=== PATIENT | male | born 1945 | race Caucasian/White ===

== ENCOUNTER 2020-12-27 14:28 | Day surgery (SDC) | payer MEDICARE ==
[~2020-12-27] VITALS: Ht 182.9 cm; Wt 76.9 kg
[2020-12-27] VITALS (9 sets, daily range): BP systolic 112–126; BP diastolic 68–83; PULSE 55–78; TEMP 97.4–97.5
--- NOTE | 2020-12-27 | NUR ---
CBI continues to run at moderate rate. output remains moreno red in color, pt reports not having an urge to void and catheter appears to be flowing freely
[~2020-12-27 14:28] MED LIST: COLACE 100100 MG/CAP PO; NO HOME MEDICATIONS; NORCO 325 MG-51 TAB PO; PYRIDIUM200 M1 PO
--- NOTE | 2020-12-27 17:30 | NUR ---
returned to room per bed from PACU, awake and alert, IV infusing per dial-a-flow, CBI infusing at slow rate and urine light pink, O2 on at 2L/NC, denies needs at this time
--- NOTE | 2020-12-27 17:45 | NUR ---
resting in bed, full assessment completed, see interventions for further info, CBI continues at slow to mod rate and urine is light red and clear
--- NOTE | 2020-12-27 18:38 | NUR ---
visiting with son, bedside shift report given to KAYLA Ojeda
--- NOTE | 2020-12-27 19:39 | NUR ---
Pt doing well at this time, CBI running at slow rate with output moreno red, CBI increased slighly with output to pink. Some minimal clots seen in carrington catheter. Pt reports no pain, just slight urge to void. Pt reports that he is not hungry at this time, but is tolerated ice water.
[2020-12-28] VITALS (13 sets, daily range): BP systolic 102–127; BP diastolic 62–75; PULSE 50–93; TEMP 97.4–98
--- NOTE | 2020-12-28 02:00 | NUR ---
Went to empty carrington catheter, was only able to empty approximately 1600ml and then the catheter bag quit draining. Output was still flowing through the catheter. Changed catheter bag at this time. Output is pink in color with CBI running at slow to moderate rate. Pt did have some clots go through the catheter tubing at the beginning of my shift. Pt has no pain complaints.
--- NOTE | 2020-12-28 02:45 | NUR ---
Output is becoming darker in color. CBI increased to moderate to fast rate. pt has no complaints of feeling as if he needs to urinate any more than when he first got out of surgery.
--- NOTE | 2020-12-28 03:50 | NUR ---
At approximately 0300 in to assess pt and output. Output continues to be dark in color and appears as if it is not draining again. Pt reports feeling okay at this time. Irrigated catheter and removed several large clots. Hooked up new catheter bag, carrington draining and CBI running at a fast rate. Output was dark red in color, but was draining. Remained with pt. Approximately 15 minutes later, catheter clotted off again. Irrigated and again was able to remove several clots, but the catheter clotted of and was not able to get it to drain. Dr Sanderson called and notified. CBI was turned off during this time. Pt is tolerating it at this time.
--- NOTE | 2020-12-28 04:42 | NUR ---
Pt off the floor at this time to OR
--- NOTE | 2020-12-28 07:05 | NUR ---
Pt recently arrived back from surgery. he is alert and oriented with no pain complaints. CBI running at moderate rate with clear, pale yellow output
--- NOTE | 2020-12-28 08:11 | NUR ---
Patient in bed resting. Alert and oriented x 3. Assessment complete. Denies pain at this time. CBI infusing at moderate rate with clear yellow urine present. Rate decreased at this time. Post op VSS. Denies needs at this time.
--- NOTE | 2020-12-28 09:01 | NUR ---
Dr. Romero in to see patient. PRN ativan given at this time. Patient anxious about discharge.
[2020-12-28] MEDS ORDERED: PYRIDIUM 100MG100 MG PO (11:02)
--- NOTE | 2020-12-28 11:59 | NUR ---
Plan to return home with Son as support but lives independently in [place]. Assessment: SW met with patient about care EMR contact is son Samir . PCP Rylee and medications obtained at [facility] in . Client indicated that he still likes to excersice on his bike and is looking for a 3 wheel bike because he fell off the one that he has. Patient reports that he uses catheters and has some self catheters. Patient reports that he is independent and does not required any DME. Action: Educated on services, No identifed needs.
--- NOTE | 2020-12-28 15:16 | NUR ---
Patient ambulated > 200 feet with SBA. No further needs at this time.
--- NOTE | 2020-12-28 18:07 | NUR ---
Patient doing well throughout the day, has been up ambulating in halls. Varela to DD with clear yellow to clear peach urine. CBI clamped at this time. Bridger denies pain at this time. Denies further needs at this time. Will report off to shift supervisor melting.
--- NOTE | 2020-12-28 21:00 | NUR ---
Patient resting in bed. No complaints of pain. CBI running slow draining clear pink urine. Patient refused his colace stating he did not need it. No other needs at this time.
[2020-12-29 04:00] VITALS: BP 121/71; PULSE 72; TEMP 97.9
--- NOTE | 2020-12-29 05:45 | NUR ---
Primed patient's catheter and removed it. Patient tolerated well. Patient has already voided once.
--- NOTE | 2020-12-29 06:55 | NUR ---
awake and up in recliner watching TV, bedside shift report received from KAYLA Sherman, patient denies needs
--- NOTE | 2020-12-29 07:30 | NUR ---
remains up in chair, is declining breakfast, full assessment completed, see interventions for further info, has voided a second time and it is clear light red,
[2020-12-29 07:49] VITALS: BP 143/74; PULSE 67; TEMP 97.4
--- NOTE | 2020-12-29 09:29 | NUR ---
up and about in room independently, has voided 4 times now
[2020-12-29 11:16] VITALS: BP 146/75; PULSE 67; TEMP 97.3
--- NOTE | 2020-12-29 13:55 | NUR ---
he is anxious to go home, will plan discharge soon, Dr Sanderson now in to see patient, discharge instructions given to patient and his son, verbalizes understanding
--- NOTE | 2020-12-29 14:09 | NUR ---
discharged ambulatory
== END 2020-12-29 14:05 | disposition home or self-care (01) ==
LOC: SDCO 14:28 → SURG 17:30 → SDCO 12-29 14:05
DX: C67.5 Malignant neoplasm of bladder neck (principal); C67.0 Malignant neoplasm of trigone of bladder; C67.4 Malignant neoplasm of posterior wall of bladder; N99.89 Other postprocedural complications and disorders of genitourinary system; R31.0 Gross hematuria; F17.210 Nicotine dependence, cigarettes, uncomplicated; Z20.822 Contact with and (suspected) exposure to COVID-19; Z90.89 Acquired absence of other organs
CPT/HCPCS: OP; C1769; C2617; J0690; J1100; J1885; J2405; J2704; J3010; J3480; J7120; Q9967

== ENCOUNTER → 2020-12-28 | Day surgery (SDC) | payer MEDICARE ==
[~2020-12-28] MED LIST changes: +PYRIDIUM 100MG100 MG PO; +[UNRECOGNIZED DRUG - REMARK]
[2020-12-28 05:52] VITALS: TEMP 97.4
[2020-12-28 06:28] VITALS: BP 114/65; PULSE 57
== END ==
LOC: SDCO 04:36
DX: R31.0 Gross hematuria (principal)

== ENCOUNTER 2021-06-11 07:06 | Day surgery (SDC) | payer MEDICARE ==
[~2021-06-11] VITALS: Ht 180.3 cm; Wt 73.0 kg
[2021-06-11] VITALS (11 sets, daily range): BP systolic 95–137; BP diastolic 59–73; PULSE 62–98; TEMP 97.6–98.6
[~2021-06-11 07:06] MED LIST changes: -[UNRECOGNIZED DRUG - REMARK]
--- NOTE | 2021-06-11 07:20 | NUR ---
Patient ambulated to bay #6 without difficulty, no use of assistive devices. Medications and HX reviewed. Consent reviewed and signed. Patient verbalized understanding of procedure. Lung sounds are mostly clear, some wheeze noted on r anterior chest wall. Heart is in sinus rythm, S1 and S2 noted. Bowel sounds are present in all quadrants. Patient was admitted with a carrington catheter. It is draining dark yellow urine. Vitals obtained and are WNL. IV started in L forearm with #20. LR is infusing without difficulty. First and last name + verified with patient. Son is present and gave a copy of AD. Will continue to monitor. Warm blanket provided. Call umanzor at bedside. Side rails x2.
[2021-06-11] MEDS ORDERED: [UNRECOGNIZED DRUG - REMARK] (08:50)
[2021-06-11] MEDS ORDERED: PYRIDIUM 100MG100 MG PO (10:59)
--- NOTE | 2021-06-11 12:17 | NUR ---
PATIENT ARRIVED TO ROOM 345 VIA BED. VSS. PT A&O, ON ROOM AIR. PT DENIES PAIN, DENIES N/V. BENAVIDES PRESENT WITH CBI RUNNING, URINE CLEAR AND COLORLESS AT THIS TIME. WILL TITRATE DOWN TO KEEP URINE PINK. SON AT BEDSIDE. DENIES NEEDS AT THIS TIME.
--- NOTE | 2021-06-11 17:14 | NUR ---
PT ARRIVED TO ROOM 344 VIA BED, VSS, ON 2 L NC. PT DENIES PAIN. PT UP TO BATHROOM TO VOID UPON ARRIVAL. POST OP VITALS RUNNING, PT DENIES FURTHER NEEDS AT THIS TIME. CALL LIGHT WITHIN REACH.
--- NOTE | 2021-06-11 18:59 | NUR ---
PT COMFORTABLE THIS EVENING, TOLERATING REGULAR DIET WITHOUT NAUSEA. PAIN CONTROLLED, VSS. CBI INFUSING, URINE IS CLEAR, LIGHT PINK. SCD'S ON. POSSIBLE DISCHARGE HOME TOMORROW IF CRITERIA MET.
--- NOTE | 2021-06-11 20:53 | NUR ---
Pt. sitting up in bed at this time. Pt. is A&OX3, assessment complete. INT to lt. forearm patent. Varela catheter with CBI running slow. Urine is peach and clear. Pt. denies pain or other needs, call light within reach.
[2021-06-12 03:28] VITALS: BP 117/77; PULSE 74; TEMP 97.6
[2021-06-12 07:20] VITALS: BP 124/68; PULSE 64; TEMP 97.8
--- NOTE | 2021-06-12 07:24 | NUR ---
INTRODUCED SELF TO PT, PT PLEASANT AWAKE IN BED, NO S/S DISTRESS AT THIS TIME. BENAVIDES PRESENT, CBI CLAMPED. PT ALERT AND ORIENTED, ALL QUESTIONS ANSWERED. CALL LIGHT WITHIN REACH.
--- NOTE | 2021-06-12 07:45 | NUR ---
RN notified of lung sounds wheezing bilateral bases, more so in left lung, upper lobes clear.
--- NOTE | 2021-06-12 09:04 | NUR ---
SW met with the patient to discuss discharge plan. The patient lives alone in [place]. He reports independence with ADLs and does not have any DME. The patient PCP was Dr. Devin Mckee, but he states that he has been seeing JHONY Omer at the [facility] for awhile now. He receives his medications from [facility] and he reports no difficulties obtaining his meds. The patient's DPOA-HC is in EMR and it designates his son, Samir (ph#[phone]). The patient plans to return home upon discharge and he states that his son will transport him home. The patient reports that he will also be moving to [place] soon, to the [employer]. No additional needs at this time. *Discharge plan: home*
--- NOTE | 2021-06-12 10:01 | NUR ---
PT DISCHARGE HOEM ON STABLE CONDITION, D/C INSTRUCTIONS REVEIWED WITH PT. BENAVIDES CATHETER INTACT UPON D/C QUESTIONS AND CONCERS ADDRESSED.
== END 2021-06-12 10:05 | disposition home or self-care (01) ==
LOC: SDCO 07:06 → SURG 12:00 → SDCO 06-12 10:05
DX: C67.4 Malignant neoplasm of posterior wall of bladder (principal); R31.0 Gross hematuria; F17.210 Nicotine dependence, cigarettes, uncomplicated; Z79.899 Other long term (current) drug therapy; Z90.89 Acquired absence of other organs
CPT/HCPCS: OP; J0690; J1100; J2405; J2704; J3010; J3480

== ENCOUNTER 2021-12-02 10:01 | Day surgery (SDC) | payer MEDICARE ==
[2021-12-02] VITALS (7 sets, daily range): BP systolic 136–143; BP diastolic 70–81; PULSE 64–96; TEMP 97.3
[~2021-12-02] VITALS: Ht 180.3 cm; Wt 71.8 kg
[~2021-12-02 10:01] MED LIST changes: +[UNRECOGNIZED DRUG - REMARK]
[2021-12-02] MEDS ORDERED: CARDIZEM 30MG T30 MG PO (10:03)
[2021-12-02] MEDS ORDERED: SYNTHROID 0.0.025 MG PO (10:05)
--- NOTE | 2021-12-02 14:15 | NUR ---
12:45-pt returned via bad to bay 2. A&O. VSS-see flowsheet. Refusing food and drink. Stat lock to left thigh in place, 18f coude indwelling catheter patent with clear, lightly pink tinged urine output noted. 13:55-pts IV removed, catheter tip intact and pressure dressing applied. 14:15-Pts VS remain stable. Denies complaints. DC teaching completed, pt verbalized understanding. Pt dressed independently. Taken via wheelchair to private vehicle for daughter in law, Trisha, to transport patient home. Pt sent with dc packet and f/u appt card.
== END 2021-12-02 14:15 | disposition home or self-care (01) ==
LOC: SDCO 10:01
DX: C67.4 Malignant neoplasm of posterior wall of bladder (principal); R31.0 Gross hematuria; F17.210 Nicotine dependence, cigarettes, uncomplicated
CPT/HCPCS: J0690; J1100; J2405; J2704; J3010; J7120